=== PATIENT | male | born 1965 | race Caucasian/White ===

== ENCOUNTER 2019-04-26 10:40 | Observation (INO) | payer OTHER ==
[~2019-04-26] VITALS: Ht 177.8 cm; Wt 103.3 kg
[2019-04-27 12:12] VITALS: BP 163/94
== END 2019-04-27 15:50 | disposition home or self-care (01) ==
LOC: ED 12:41 → EDIP 13:09 → INTOOBSV 13:09 → 5SO 14:52
PROVIDERS: ADMIT Internal Medicine; ATTEND Internal Medicine
DX: R07.89 Other chest pain (principal); M10.9 Gout, unspecified; E66.9 Obesity, unspecified; F17.210 Nicotine dependence, cigarettes, uncomplicated; E78.5 Hyperlipidemia, unspecified; Z79.899 Other long term (current) drug therapy; Z88.8 Allergy status to other drugs, medicaments and biological substances; Z68.32 Body mass index [BMI] 32.0-32.9, adult
CPT/HCPCS: 36415; 71046; 80053; 80061; 84484; 85025; 93005; 93017; 96374; 99284; G0378; J2270; Q0163